=== PATIENT | female | born 1985 | race Caucasian/White ===

== ENCOUNTER 2023-11-19 19:32 | Emergency (ER) | payer SELFPAY ==
[2023-11-19] VITALS (11 sets, daily range): BP systolic 105–133; BP diastolic 55–80
[~2023-11-19] VITALS: Ht 152.4 cm; Wt 103.4 kg
[2023-11-19] MEDS ORDERED: ASPIRIN 81 MG/TAB PO ONE (19:55)
[2023-11-19 20:09] LABS: BASO% 0.1 % (0-3); EOS% 1.1 % (0-8); HEMATOCRIT 40.7 % (37.0-47.0); HEMOGLOBIN 13.2 g/dl (12.0-16.0); IMMATURE GRANULOCYTES 0.2 % (0.0-5.0); LYMPH% 46.3 % (15-41); MEAN CELL VOLUME 90.2 fL CALC (80.0-100.0); MEAN CORPUSCULAR HGB 29.3 pG CALC (26.0-32.0); MEAN CORPUSCULAR HGB CONC 32.4 g/dL CAL (32.0-36.0); MONO% 6.2 % (2-13); NEUT# 5.62 thou/uL (2.00-7.15); NEUT% 46.1 % (42-76); RED BLOOD COUNT 4.51 mill/uL (4.20-5.60)
[2023-11-19] MEDS ORDERED: DIFLUCAN100 MG PO (20:16)
[2023-11-19] MEDS ORDERED: VENLAFAXINE150 M1 PO (20:16)
[2023-11-19] MEDS ORDERED: KLONOPIN0.5 MG PO (20:17)
[2023-11-19] MEDS ORDERED: MELOXICAM15 MG PO (20:17)
[2023-11-19 20:33] LABS: ALBUMIN 3.9 g/dL (3.2-5.0); ALKALINE PHOSPHATASE 76 u/l (38-126); ANION GAP 10 (6-22 (CALC)); BILIRUBIN, TOTAL 0.1 mg/dL (0.02-1.3); BUN 16 mg/dL (7-17); BUN/CREATININE RATIO 19 (12-20 (CALC)); CARBON DIOXIDE 23 mmol/l (22-30); CHLORIDE 110 mmol/l (95-108); CREATININE 0.8 mg/dL (0.5-1.0); GFR FOR AFR.AMER. > 60 ML/MIN (>=60 (CALC)); GFR OTHER RACES > 60 ML/MIN (>=60 (CALC)); POTASSIUM 3.7 mmol/l (3.5-5.1); SGOT/AST 22 u/l (14-36); SODIUM 139 mmol/l (137-146); TOTAL PROTEIN 7.2 g/dL (6.3-8.2)
== END 2023-11-19 22:55 | disposition home or self-care (01) | DRG 204 ==
LOC: ED 19:32
PROVIDERS: Emergency Medicine
DX: R07.81 Pleurodynia (principal); M79.7 Fibromyalgia; F17.210 Nicotine dependence, cigarettes, uncomplicated; F17.290 Nicotine dependence, other tobacco product, uncomplicated